=== PATIENT | male | born 1955 | race Caucasian/White ===

== ENCOUNTER 2024-04-21 09:05 | Day surgery (SDC) | payer MEDICARE, BC, SELFPAY ==
[2024-04-17 13:54] VITALS: BMI 34.3
--- NOTE | 2024-04-20 12:10 | HO.ANESPROP2 ---
Documented by User: Char Bridges NP 04/20/24 12:11 HPI - Anesthesia Eval Consult details Narrative: 69yo M for Colonoscopy [facility] Past Medical History Medical History Parapneumonic effusion Pulmonary embolism Depression Hyperlipidemia HTN (hypertension) Surgical History Surgical History History of back surgery Hx of knee surgery H/O colonoscopy Social History Social History Household Members: Spouse Patient Tobacco Use Status: Former Tobacco user Tobacco use type: Cigarette Use of substances other than those prescribed or required for medical reasons: No Are you DNR?: No Advance Directives: No Advance Directives Information Provided: Yes Meds Allergies Allergy/AdvReac Type Severity Reaction Status Date / Time No Known Allergies Allergy Verified 04/17/24 13:54 Home Medications ?Medication ?Instructions ?Recorded ?Confirmed ?Last Taken ?Type Vitamin D3 1 cap PO DAILY 04/17/24 04/17/24 Unknown History atorvastatin 20 mg tablet 20 mg PO DAILY 04/17/24 04/17/24 Unknown History docusate sodium 100 mg capsule 100 mg PO DAILY 04/17/24 04/17/24 Unknown History (Colace) duloxetine 30 mg capsule,delayed 30 mg PO BID 04/17/24 04/17/24 Unknown History release folic acid 1 mg tablet 1 mg PO DAILY 04/17/24 04/17/24 Unknown History gabapentin 100 mg capsule 100 mg PO DAILY 04/17/24 04/17/24 Unknown History Exam Height,Weight and Vital Signs: Height 6 ft Weight 114.759 kg Assessment and Plan Assessment Anesthesia Assessment: Chart Reviewed Documented by User: Betzaida Alarcon MD 04/21/24 10:19 PMF Past Medical History Medical History Parapneumonic effusion Pulmonary embolism Depression Hyperlipidemia HTN (hypertension) Family History Family history of problems with anesthesia: No Surgical History Surgical History History of back surgery Hx of knee surgery H/O colonoscopy History of Problems with Anesthesia: No Social History Social History Household Members: Spouse Patient Tobacco Use Status: Former Tobacco user Tobacco use type: Cigarette Use of substances other than those prescribed or required for medical reasons: No Are you DNR?: No Advance Directives: No Advance Directives Information Provided: Yes Meds Allergies Allergy/AdvReac Type Severity Reaction Status Date / Time No Known Allergies Allergy Verified 04/17/24 13:54 Home Medications ?Medication ?Instructions ?Recorded ?Confirmed ?Last Taken ?Type Vitamin D3 1 cap PO DAILY 04/17/24 04/17/24 Unknown History atorvastatin 20 mg tablet 20 mg PO DAILY 04/17/24 04/17/24 Unknown History docusate sodium 100 mg capsule 100 mg PO DAILY 04/17/24 04/17/24 Unknown History (Colace) duloxetine 30 mg capsule,delayed 30 mg PO BID 04/17/24 04/17/24 Unknown History release folic acid 1 mg tablet 1 mg PO DAILY 04/17/24 04/17/24 Unknown History gabapentin 100 mg capsule 100 mg PO DAILY 04/17/24 04/17/24 Unknown History Exam Airway Mallampati Class: II TM Dist: >3cm Neck ROM: Full Heart: rrr Lungs: cta Assessment and Plan Assessment Anesthesia Assessment: Anesthesia Plan Discussed Final Anesthetic Review Family History of Problems with Anesthesia: No History of Problems with Anesthesia: No NPO: Yes ASA Class: III Final Preanesthetic Review: No Changes in Pt Med Stat, Meds/Allgs Chart Reviewed, Consent Obtained/Reviewed and Anes Risks/Benef Reviewed Patient Risk: Intermediate Procedure Risk: Low Anesthetic Plan Anesthetic Plan: MAC: Disposition: Standard PACU
[2024-04-21] VITALS (7 sets, daily range): BP systolic 82–166; BP diastolic 48–84; PULSE 63–94; RESP 16–18; TEMP 36.2–36.6; O2SAT 96–98; BMI 33.2
[2024-04-21] MEDS: Lactated Ringers 1,000 ML 100 ML IVCONT (09:24)
--- NOTE | 2024-04-21 09:57 | MHC.SHP ---
Pre-Procedural Eval Section A - 24 Hr Update-Section A only Date of Service: 04/21/24 The patient is an INPATIENT: No Changes since office visit: No Cold of Flu in the past 2 weeks, No New Medical Problems, No Changes in Medication and No Patient answered all questions The patient has been examined within 24 hours of the surgical procedure. The History & Physical has been completed within 30 days and I have reviewed it.: Yes Section B - Complete if H&P > 30 days Chief Complaint: Encounter for screening for malignant neoplasm of Allergies: Allergies Allergy/AdvReac Type Severity Reaction Status Date / Time No Known Allergies Allergy Verified 04/17/24 13:54 Plan I have reviewed the history and physical and performed a pertinent physical examination on my patient. No changes have occurred unless specified. Time Spent With Patient Time: Total time managing care of this patient today ____ minutes.
--- NOTE | 2024-04-21 12:35 | OP_ITS ---
DATE OF SERVICE: 04/21/2024 SURGEON: Charlie Hernández MD INDICATIONS: Colon cancer screening. PREOPERATIVE DIAGNOSIS: POSTOPERATIVE DIAGNOSIS: PROCEDURE PERFORMED: Colonoscopy to the terminal ileum with snare polypectomy. ESTIMATED BLOOD LOSS: COMPLICATIONS: ANESTHESIA: Monitored anesthesia care. ASSISTANTS: SPECIMENS: DESCRIPTION OF PROCEDURE: A history and physical was performed. The risks and benefits of the procedure were explained to the patient, and informed consent was obtained. The patient was placed in the left lateral decubitus position. A digital rectal exam was performed and was found to be normal. The Olympus pediatric video colonoscope was introduced into the rectum and advanced to the cecum. The cecum was identified by transillumination, palpation, and identification of ileocecal valve. Examination was performed. The scope was removed. He tolerated the procedure well and was returned to the recovery area in stable condition. FINDINGS: The terminal ileum was examined and appeared normal. The visualized colonic mucosa was normal. The quality of the prep was good. A single polyp at 40 cm was identified and removed with a cold snare. This measured approximately 6 mm. No other polyps were identified. Retroflexed examination showed small internal hemorrhoids. The quality of the prep was good. IMPRESSION: Colon polyp. RECOMMENDATION: Follow up the biopsy results. MD KIZZY Spencer/MODL / [id number]
== END 2024-04-21 12:01 | disposition home or self-care (01) ==
PROVIDERS: PCP Internal Medicine; Visit Provider Internal Medicine Gastroenterology
PROC: 0DJD8ZZ Inspection of Lower Intestinal Tract, Via Natural or Artificial Opening Endoscopic (ICD-10-PCS; CPT 45378; principal; 2024-04-21 10:10)
DX: Z12.11 Encounter for screening for malignant neoplasm of colon (principal); Z86.010 Personal history of colon polyps; D12.5 Benign neoplasm of sigmoid colon; K64.8 Other hemorrhoids; I10 Essential (primary) hypertension; E78.5 Hyperlipidemia, unspecified; I26.99 Other pulmonary embolism without acute cor pulmonale; J91.8 Pleural effusion in other conditions classified elsewhere; G31.84 Mild cognitive impairment of uncertain or unknown etiology; F32.A Depression, unspecified; Z79.1 Long term (current) use of non-steroidal anti-inflammatories (NSAID); Z79.899 Other long term (current) drug therapy; Z98.890 Other specified postprocedural states; Z87.891 Personal history of nicotine dependence
CPT/HCPCS: 45385; 88305; J2704